=== PATIENT | male | born 1980 | race Caucasian/White ===

== ENCOUNTER 2024-02-12 15:23 | Emergency (ER) | payer SELFPAY ==
[~2024-02-12] VITALS: Ht 177.8 cm; Wt 93.6 kg
[2024-02-12 15:53] VITALS: BP 124/76; PULSE 99; RESP 20; TEMP 97.8; O2SAT 98
[2024-02-12 16:37] VITALS: O2SAT 98
[2024-02-12] MEDS: LIDOCAINE MPF 1% 10 MG/ML VIAL INJ ONE (16:43)
[2024-02-12] MEDS: IBUPROFEN 600 MG TAB PO ONE (16:45)
[2024-02-12] MEDS ORDERED: BACI-418 TP (17:00)
[2024-02-12] MEDS ORDERED: IBUP-2213 PO (17:00)
== END 2024-02-12 17:19 | disposition home or self-care (01) ==
LOC: MED 15:23
DX: S61.216A Laceration without foreign body of right little finger without damage to nail, initial encounter (principal); F12.90 Cannabis use, unspecified, uncomplicated; W01.0XXA Fall on same level from slipping, tripping and stumbling without subsequent striking against object, initial encounter; Y93.89 Activity, other specified; Y92.89 Other specified places as the place of occurrence of the external cause; Y99.8 Other external cause status
CPT/HCPCS: 12001; 73140; 99283; J2003

== ENCOUNTER 2024-02-28 10:51 | Emergency (ER) | payer SELFPAY ==
[~2024-02-28] VITALS: Ht 180.3 cm; Wt 93.0 kg
[~2024-02-28 10:51] MED LIST: BACI-418 TP; IBUP-2213 PO
[2024-02-28 11:00] VITALS: BP 145/93; PULSE 95; RESP 15; TEMP 98; O2SAT 97
[2024-02-28] MEDS ORDERED: IBUP-2213 PO (13:08)
[2024-02-28 13:20] VITALS: BP 135/90; PULSE 80; RESP 15; TEMP 98; O2SAT 97
== END 2024-02-28 13:20 | disposition home or self-care (01) ==
LOC: MED 10:51
DX: S63.616A Unspecified sprain of right little finger, initial encounter (principal); R03.0 Elevated blood-pressure reading, without diagnosis of hypertension; Z79.899 Other long term (current) drug therapy; X50.9XXA Other and unspecified overexertion or strenuous movements or postures, initial encounter; Y93.89 Activity, other specified; Y92.89 Other specified places as the place of occurrence of the external cause; Y99.8 Other external cause status
CPT/HCPCS: 73130; 99283